=== PATIENT | male | born 1940 | race Caucasian/White ===

== ENCOUNTER 2019-10-31 12:19 | Emergency (ER) | payer OTHER ==
[~2019-10-31] VITALS: Ht 160 cm; Wt 72.6 kg
[~2019-10-31 12:19] MED LIST: LOVASTATIN20 MG; NORVASC10 MG; PLAVIX75 MG
[2019-10-31] MEDS ORDERED: COZAAR100 MG (12:45)
[2019-10-31] MEDS ORDERED: COREG CR10 MG (12:46)
[2019-10-31] MEDS ORDERED: PLAVIX75 MG (12:46)
== END 2019-10-31 16:28 | disposition home or self-care (01) ==
LOC: ER
DX: J45.998 Other asthma (principal)